=== PATIENT | male | born 1990 | race Caucasian/White ===

== ENCOUNTER 2016-11-10 10:27 | Emergency (ER) | payer OTHER ==
[2016-11-10] MEDS ORDERED: KETOROLAC 30 MG/ML VIAL (J1885) As Ordered ONE (10:56)
[2016-11-10 11:37] LABS: BASO % 0.2 % (0.0-1.0); EOS # 0.1 K/mm3 (0.0-0.50); EOS % 0.9 % (0.0-3.0); LARGE UNSTAINED CELL # 0.1 K/mm3 (0.0-0.4); LARGE UNSTAINED CELL % 0.9 % (0.0-4.0); LYMPH # 1.1 K/mm3 (1.5-6.5); LYMPH % 8.9 % (24.0-44.0); MEAN CORPUSCULAR HEMOGLOBIN 31.9 pg (27.0-33.0); MEAN CORPUSCULAR HGB CONC 34.7 g/dl (32.0-36.5); MEAN CORPUSCULAR VOLUME 91.9 fl (80.0-96.0); MONO # 0.7 K/mm3 (0.0-0.8); MONO % 6.5 % (0.0-5.0); NEUTROPHILS # 9.1 K/mm3 (1.8-7.7); NEUTROPHILS % 82.7 % (36.0-66.0); RED CELL DISTRIBUTION WIDTH 12.4 % (11.5-14.5)
[2016-11-10 11:46] LABS: ALBUMIN/GLOBULIN RATIO 0.98 (1.00-1.93); ALKALINE PHOSPHATASE 69 U/L (45-117); ALT/SGPT 68 U/L (12-78); AMYLASE 48 U/L (25-115); ANION GAP 9 MEQ/L (8-16); AST/SGOT 25 U/L (15-37); BILIRUBIN,DIRECT 0.1 MG/DL (0.0-0.2); BILIRUBIN,TOTAL 0.7 MG/DL (0.2-1.0); BLOOD UREA NITROGEN 10 MG/DL (7-18); CALCIUM LEVEL 9.3 MG/DL (8.5-10.1); CARBON DIOXIDE LEVEL 26 MEQ/L (21-32); CHLORIDE LEVEL 106 MEQ/L (98-107); CREATININE FOR GFR 1.12 MG/DL (0.70-1.30); GLOMERULAR FILTRATION RATE > 60.0 (>60); GLUCOSE, FASTING 94 MG/DL (70-105); POTASSIUM SERUM 4.2 MEQ/L (3.5-5.1); SODIUM LEVEL 141 MEQ/L (136-145); TOTAL PROTEIN 8.1 GM/DL (6.4-8.2)
[2016-11-10 11:53] LABS: PLATELET COUNT, AUTOMATED 67 k/mm3 (150-450)
--- NOTE | 2016-11-10 12:45 | EDDOCDS ---
Physician Documentation [facility] Name: Oj Jane Age: 26 yrs Sex: Male : 1990 Arrival Date: 11/10/2016 Time: 10:27 Bed I5 / M5 Private MD: ALE [place] Disposition: 11/10/16 12:29 Discharged to Home/Self Care. Impression: Diarrhea, unspecified, Generalized abdominal pain, Headache. - Condition is Stable. - Discharge Instructions: Viral Gastroenteritis. - Prescriptions for ZOFRAN ODT 4 mg - dissolve 1 tablet by ORAL route 4 times per day As needed do not chew, do not swallow whole; 10 tablet. - Medication Reconciliation, Work Release Form - 1 day form. - Follow up: ALE [place]; When: Call to arrange an appointment; Reason: Wound/Symptom Recheck, Recheck today's complaints, Worsening of conditions, Continuance of care. - Problem is an ongoing problem. - Symptoms have improved. Historical: - Allergies: no known allergies; - Home Meds: 1. none - PMHx: none; - PSHx: none; - Social history: Smoking status: Patient states was never smoker of tobacco. No barriers to communication noted, The patient speaks fluent Slovak. - Family history: Not pertinent. - : The pt / caregiver states he / she is not on anticoagulants. Home medication list is obtained from the patient. - Exposure Risk Screening:: None identified. Vital Signs: 11/10 10:28 BP 159 / 96; Pulse 100; Resp 16; Temp 100.3; Pulse Ox 97% ; Weight 108.86 kg / 240 lbs; elp Height 6 ft. 2 in. (187.96 cm); 11:58 Pain 3/10; ck1 12:31 BP 137 / 81; Pulse 77; Resp 18; Temp 97.7(O); Pulse Ox 96% on R/A; Pain 3/10; ck1 10:28 Body Mass Index 30.81 (108.86 kg, 187.96 cm) elp MDM: 10:45 NS 0.9% 1000 ml IV at bolus once ordered. cc10 10:45 ketorolac 30 mg IVP once ordered. cc10 10:45 IV Saline Lock ordered. cc10 10:45 Undress patient appropriately for examination ordered. cc10 10:46 Amylase Ordered. EDMS 10:46 Basic Metabolic Profile Ordered. EDMS 10:46 CBC with Diff Ordered. EDMS 10:46 Lipase Ordered. EDMS 10:46 Liver Profile Ordered. EDMS 10:46 Urinalysis Ordered. EDMS 10:46 Abdomen, Flat\E\Upright,PA Chest Ordered. EDMS 10:46 NOTHING BY MOUTH+DIET ordered. EDMS 11:18 Financial registration complete. mm15 12:00 CBC with Diff Reviewed. cc10 12:00 Liver Profile Reviewed. cc10 12:00 Amylase Reviewed. cc10 12:00 Basic Metabolic Profile Reviewed. cc10 12:00 Lipase Reviewed. cc10 12:00 Urinalysis Reviewed. cc10 Administered Medications: 10:59 Drug: NS 0.9% 1000 ml [sodium chloride 0.9 % injection solution] Route: IV; Rate: mlb1 bolus; Site: right antecubital; 12:30 Follow up: IV Status: Infusion discontinued ck1 11:00 Drug: ketorolac 30 mg [ketorolac 30 mg/mL (1 mL) injection solution (1 mL)] Route: IVP; mlb1 Site: right antecubital; 11:58 Follow up: Pain 3/10 Adult; Response: No Adverse Reaction; Pain is decreased ck1 Signatures: Dispatcher [employer] EDMS Cristiane HendricksonRN RN ck1 Samantha Grullon, Monae Phillips RN mm15 Stuart Ramsey PA-C PAAlanC cc10 Raudel Martinez RN mlb1 MTDD
--- NOTE | 2016-11-10 12:45 | EDDOCDS ---
Nurse's Notes [facility] Name: Oj Jane Age: 26 yrs Sex: Male : 1990 Arrival Date: 11/10/2016 Time: 10:27 Bed I5 / M5 Private MD: Celso [facility] Diagnosis: Diarrhea, unspecified;Generalized abdominal pain;Headache Presentation: 11/10 10:30 Presenting complaint: Patient states: lower abdominal pain radiating to low back sudden jjr onset at 1800 yesterday, also reports STEELE and heaviness to center of chest since 2300 last night, reports no appetite due to abd pain, last BM yesterday. Risk factors: the patient reports not having a history of previous torsion. Adult Sepsis Screening: The patient does not have new or worsening altered mentation. Patient's respiratory rate is less than 22. Systolic blood pressure is greater than 100. Patient has a qSOFA score of 0- Negative Sepsis Screen. Suicide/Homicide risk assessment- the patient denies having any suicidal and/or homicidal ideations and does not present with any other emotional, behavioral or mental health complaints. Status: The patient is an active duty social service manager. Transition of care: patient was not received from another setting of care. 10:30 Acuity: SARATH Level 3 jjr 10:30 Method Of Arrival: Walkin/Carried/Asstd jjr Triage Assessment: 10:32 General: Appears in no apparent distress. Pain: Location: left low back, right low jjr back, right lower quadrant and left lower quadrant. Pt Declines HIV testing. GI: Reports lower abdominal pain. Derm: No deficits noted. Historical: - Allergies: no known allergies; - Home Meds: 1. none - PMHx: none; - PSHx: none; - Social history: Smoking status: Patient states was never smoker of tobacco. No barriers to communication noted, The patient speaks fluent Burundian. - Family history: Not pertinent. - : The pt / caregiver states he / she is not on anticoagulants. Home medication list is obtained from the patient. - Exposure Risk Screening:: None identified. Screenin:02 Screening information is obtained from the patient. Fall risk: No risks identified. ck1 Assistance ADL's: requires no assistance with activities of daily living. Abuse/DV Screen: The patient / caregiver reports he/she is: not in a situation that causes fear, pain or injury. Nutritional screening: No deficits noted. Advance Directives: Currently, there is no health care proxy. home support is adequate. Assessment: 11:00 General: Appears in no apparent distress, comfortable, Behavior is appropriate for age, mlb1 cooperative. Pain: Location: abdomen Pain currently is 5 out of 10 on a pain scale. GI: Abdomen is non- distended Bowel sounds present X 4 quads. Abd is soft and non tender X 4 quads. Derm: No deficits noted. 11:59 General: Patient is resting quietly on stretcher. Reports pain 3/10 in abdomen. Reports ck1 "loose" BM in ED restroom. No c/o N/V. Call light in reach, SO at bedside. Will continue to monitor patient. 12:43 General: Appears in no apparent distress, comfortable, Behavior is appropriate for age, ck1 cooperative. Pain: Location: abdomen Pain currently is 3 out of 10 on a pain scale. Neurological: Level of Consciousness is awake, alert, obeys commands, Oriented to person, place, time. Respiratory: Respiratory effort is unlabored, Respiratory pattern is regular, symmetrical. GI: Denies nausea, vomiting. Derm: Skin is intact, is healthy with good turgor. Musculoskeletal: No deficits noted. Vital Signs: 10:28 BP 159 / 96; Pulse 100; Resp 16; Temp 100.3; Pulse Ox 97% ; Weight 108.86 kg; Height 6 elp ft. 2 in. (187.96 cm); 11:58 Pain 3/10; ck1 12:31 BP 137 / 81; Pulse 77; Resp 18; Temp 97.7(O); Pulse Ox 96% on R/A; Pain 3/10; ck1 10:28 Body Mass Index 30.81 (108.86 kg, 187.96 cm) [facility] Vitals: 10:28 Log In Time: November 10, 2016 at 10:26. [facility] ED Course: 10:28 Patient visited by Lisa Banda PCA. elp 10:28 ALE [place] is Private Physician. elp 10:28 Patient moved to Waiting elp 10:29 Patient visited by Lisa Banda PCA. elp 10:29 Patient moved to Pre RCE elp 10:30 Stuart Ramsey [facility] cc10 10:30 Doroteo Moran MD is Attending Physician. cc10 10:32 Triage Initiated jjr 10:33 Patient moved to Triage 2 jjr 10:39 Patient visited by Stuart Ramsey PA-C. cc10 10:39 Patient visited by Stuart Ramsey PA-C. cc10 10:53 Patient moved to I5 / M5 pml 11:01 Patient visited by Cristiane Hendrickson,DAMION. ck1 11:01 Amylase Sent. ck1 11:01 Basic Metabolic Profile Sent. ck1 11:01 CBC with Diff Sent. ck1 11:01 Lipase Sent. ck1 11:01 Liver Profile Sent. ck1 11:01 Inserted saline lock: 20 gauge in right antecubital area and blood collected. The ck1 patient tolerated the procedure well. 11:02 Patient visited by Cristiane Hendrickson RN. ck1 11:02 The patient / caregiver is instructed regarding the plan of care and ED course. ck1 11:36 Patient visited by Cristiane Hendrickson RN. ck1 11:58 Patient visited by Cristiane Hendrickson,DAMION. ck1 12:28 ALE [place] is Referral Physician. cc10 12:30 Discontinued lock intact, bleeding controlled, pressure dressing applied, No ck1 redness/swelling at site. No procedures done that require assistance. Administered Medications: 10:59 Drug: NS 0.9% 1000 ml [sodium chloride 0.9 % injection solution] Route: IV; Rate: mlb1 bolus; Site: right antecubital; 12:30 Follow up: IV Status: Infusion discontinued ck1 11:00 Drug: ketorolac 30 mg [ketorolac 30 mg/mL (1 mL) injection solution (1 mL)] Route: IVP; mlb1 Site: right antecubital; 11:58 Follow up: Pain 3/10 Adult; Response: No Adverse Reaction; Pain is decreased ck1 Order Results: Lab Order: Amylase; SPEC'M 11/10/16 10:59 Test: AMYLASE; Value: 48; Range: 25-115; Units: U/L; Status: F Lab Order: Basic Metabolic Profile; SPEC'M 11/10/16 10:59 Test: GLUCOSE, FASTING; Value: 94; Range: 70-105; Units: MG/DL; Status: F Test: BLOOD UREA NITROGEN; Value: 10; Range: 7-18; Units: MG/DL; Status: F Test: CREATININE FOR GFR; Value: 1.12; Range: 0.70-1.30; Units: MG/DL; Status: F Test: GLOMERULAR FILTRATION RATE; Value: > 60.0; Range: >60; Status: F Test: SODIUM LEVEL; Value: 141; Range: 136-145; Units: MEQ/L; Status: F Test: POTASSIUM SERUM; Value: 4.2; Range: 3.5-5.1; Units: MEQ/L; Status: F Test: CHLORIDE LEVEL; Value: 106; Range: 98-107; Units: MEQ/L; Status: F Test: CARBON DIOXIDE LEVEL; Value: 26; Range: 21-32; Units: MEQ/L; Status: F Test: ANION GAP; Value: 9; Range: 8-16; Units: MEQ/L; Status: F Test: CALCIUM LEVEL; Value: 9.3; Range: 8.5-10.1; Units: MG/DL; Status: F Test Note: ; Units are mL/min/1.73 m2 Chronic Kidney Disease Staging per NKF: Stage I & II GFR >=60 Normal to Mildly Decreased Stage III GFR 30-59 Moderately Decreased Stage IV GFR 15-29 Severely Decreased Stage V GFR <15 Very Little GFR Left ESRD GFR <15 on [employer]PERATOR Lab Order: CBC with Diff; SPEC'M 11/10/16 10:59 Test: WHITE BLOOD COUNT; Value: 11.0; Range: 4.0-10.0; Abnormal: Above high normal; Units: K/mm3; Status: F Test: RED BLOOD COUNT; Value: 5.32; Range: 4.30-6.10; Units: M/mm3; Status: F Test: HEMOGLOBIN; Value: 17.0; Range: 14.0-18.0; Units: g/dl; Status: F Test: HEMATOCRIT; Value: 48.9; Range: 42.0-52.0; Units: %; Status: F Test: MEAN CORPUSCULAR VOLUME; Value: 91.9; Range: 80.0-96.0; Units: fl; Status: F Test: MEAN CORPUSCULAR HEMOGLOBIN; Value: 31.9; Range: 27.0-33.0; Units: pg; Status: F Test: MEAN CORPUSCULAR HGB CONC; Value: 34.7; Range: 32.0-36.5; Units: g/dl; Status: F Test: RED CELL DISTRIBUTION WIDTH; Value: 12.4; Range: 11.5-14.5; Units: %; Status: F Test: PLATELET COUNT, AUTOMATED; Value: 67; Range: 150-450; Abnormal: Below low normal; Units: k/mm3; Status: F Test: NEUTROPHILS %; Value: 82.7; Range: 36.0-66.0; Abnormal: Above high normal; Units: %; Status: F Test: LYMPH %; Value: 8.9; Range: 24.0-44.0; Abnormal: Below low normal; Units: %; Status: F Test: MONO %; Value: 6.5; Range: 0.0-5.0; Abnormal: Above high normal; Units: %; Status: F Test: EOS %; Value: 0.9; Range: 0.0-3.0; Units: %; Status: F Test: BASO %; Value: 0.2; Range: 0.0-1.0; Units: %; Status: F Test: LARGE UNSTAINED CELL %; Value: 0.9; Range: 0.0-4.0; Units: %; Status: F Test: NEUTROPHILS #; Value: 9.1; Range: 1.8-7.7; Abnormal: Above high normal; Units: K/mm3; Status: F Test: LYMPH #; Value: 1.1; Range: 1.5-6.5; Abnormal: Below low normal; Units: K/mm3; Status: F Test: MONO #; Value: 0.7; Range: 0.0-0.8; Units: K/mm3; Status: F Test: EOS #; Value: 0.1; Range: 0.0-0.50; Units: K/mm3; Status: F Test: BASO #; Value: 0.0; Range: 0.0-0.2; Units: K/mm3; Status: F Test: LARGE UNSTAINED CELL #; Value: 0.1; Range: 0.0-0.4; Units: K/mm3; Status: F Lab Order: Lipase; SPEC'M 11/10/16 10:59 Test: LIPASE; Value: 138; Range: 73-393; Units: U/L; Status: F Lab Order: Liver Profile; [facility] 11/10/16 10:59 Test: AST/SGOT; Value: 25; Range: 15-37; Units: U/L; Status: F Test: ALT/SGPT; Value: 68; Range: 12-78; Units: U/L; Status: F Test: ALKALINE PHOSPHATASE; Value: 69; Range: 45-117; Units: U/L; Status: F Test: BILIRUBIN,TOTAL; Value: 0.7; Range: 0.2-1.0; Units: MG/DL; Status: F Test: BILIRUBIN,DIRECT; Value: 0.1; Range: 0.0-0.2; Units: MG/DL; Status: F Test: TOTAL PROTEIN; Value: 8.1; Range: 6.4-8.2; Units: GM/DL; Status: F Test: ALBUMIN; Value: 4.0; Range: 3.2-5.2; Units: GM/DL; Status: F Test: ALBUMIN/GLOBULIN RATIO; Value: 0.98; Range: 1.00-1.93; Abnormal: Below low normal; Status: F Lab Order: Urinalysis; [facility]' 11/10/16 10:52 Test: APPEARANCE, URINE; Value: CLEAR; Range: CLEAR; Status: F Test: COLOR, URINE; Value: YELLOW; Range: YELLOW; Status: F Test: PH,URINE; Value: 5.0; Range: 5.0-9.0; Units: UNITS; Status: F Test: SPECIFIC GRAVITY URINE AUTO; Value: 1.024; Range: 1.002-1.035; Status: F Test: PROTEIN, URINE AUTO; Value: NEGATIVE; Range: NEGATIVE; Units: mg/dL; Status: F Test: GLUCOSE, URINE (UA) AUTO; Value: NEGATIVE; Range: NEGATIVE; Units: mg/dL; Status: F Test: KETONE, URINE AUTO; Value: NEGATIVE; Range: NEGATIVE; Units: mg/dL; Status: F Test: UROBILINOGEN, URINE AUTO; Value: 0.2; Range: 0.0-2.0; Units: mg/dL; Status: F Test: BILIRUBIN, URINE AUTO; Value: NEGATIVE; Range: NEGATIVE; Status: F Test: NITRITE, URINE AUTO; Value: NEGATIVE; Range: NEGATIVE; Status: F Test: LEUKOCYTE ESTERASE, URINE AUTO; Value: NEGATIVE; Range: NEGATIVE; Status: F Test: BLOOD, URINE BLOOD; Value: NEGATIVE; Range: NEGATIVE; Status: F Test: WBC, URINE AUTO; Value: 0; Range: 0-3; Units: /HPF; Status: F Test: RBC, URINE AUTO; Value: 2; Range: 0-3; Units: /HPF; Status: F Test: BACTERIA, URINE AUTO; Value: NEGATIVE; Range: NEGATIVE; Status: F Test: SQUAMOUS EPITHELIAL CELL UR AU; Value: 0; Range: 0-6; Units: /HPF; Status: F Test: MUCUS, URINE; Value: SMALL; Range: NEGATIVE; Status: F Test: HYALINE CAST, URINE AUTO; Value: 0; Range: 0-1; Units: /LPF; Status: F Outcome: 12:29 Discharge ordered by Provider. cc10 12:30 Discharge Assessment: Patient awake, alert and oriented x 3. No cognitive and/or ck1 functional deficits noted. Patient verbalized understanding of disposition instructions. patient administered narcotics - no. The following High Risk Discharge criteria are identified: None. Discharged to home ambulatory, with significant other. Condition: stable. Discharge instructions given to patient, Instructed on discharge instructions, follow up and referral plans. medication usage, Demonstrated understanding of instructions, medications, Pt was receptive of discharge instructions/ teaching. Prescriptions given X 1, Work note provided to patient. No special radiology studies were completed. Property :Personal belongings accompany Pt. 12:44 Patient left the ED. ck1 Signatures: Raudel Martinez RN RN mlb1 Cristiane HendricksonRN RN ck1 Samantha Grullon RN [place] CastilloRN RN Lisa Salinas, [employer] elp Stuart Ramsey, PA-C PA-C cc10 MTDD
--- NOTE | 2016-11-10 14:49 | REP ---
ACUTE ABDOMINAL SERIES: 11/10/2016. Clinical history: Abdominal pain. Findings: PA chest: Lungs well inflated and clear. The heart, mediastinal and hilar contours are normal. Airway intact. No free air under the diaphragm. Bones unremarkable. Abdomen: Flat and upright views of the abdomen show nonspecific gas pattern. There is scattered gas in small bowel loops without dilatation. A couple of air-fluid levels in a nonspecific pattern are noted. No abnormal calcifications or masses. No free air. Bones intact. Impression: 1. Nonspecific gas pattern without obstruction, mass or free air. Scattered gas in nondilated small bowel loops with a few air-fluid levels. This might reflect some gastroenteritis or ileus. 2. Negative PA chest. Signed by Jerel Gonzalez MD 11/10/2016 07:28 P
--- NOTE | 2016-11-12 13:45 | EDDOCDS ---
Nurse's Notes [facility] Name: Oj Jane Age: 26 yrs Sex: Male : 1990 Arrival Date: 11/10/2016 Time: 10:27 Bed I5 / M5 Private MD: Celso [facility] Diagnosis: Diarrhea, unspecified;Generalized abdominal pain;Headache Presentation: 11/10 10:30 Presenting complaint: Patient states: lower abdominal pain radiating to low back sudden jjr onset at 1800 yesterday, also reports STEELE and heaviness to center of chest since 2300 last night, reports no appetite due to abd pain, last BM yesterday. Risk factors: the patient reports not having a history of previous torsion. Adult Sepsis Screening: The patient does not have new or worsening altered mentation. Patient's respiratory rate is less than 22. Systolic blood pressure is greater than 100. Patient has a qSOFA score of 0- Negative Sepsis Screen. Suicide/Homicide risk assessment- the patient denies having any suicidal and/or homicidal ideations and does not present with any other emotional, behavioral or mental health complaints. Status: The patient is an active duty postal service mail processor. Transition of care: patient was not received from another setting of care. 10:30 Acuity: SARATH Level 3 jjr 10:30 Method Of Arrival: Walkin/Carried/Asstd jjr Triage Assessment: 10:32 General: Appears in no apparent distress. Pain: Location: left low back, right low jjr back, right lower quadrant and left lower quadrant. Pt Declines HIV testing. GI: Reports lower abdominal pain. Derm: No deficits noted. Historical: - Allergies: no known allergies; - Home Meds: 1. none - PMHx: none; - PSHx: none; - Social history: Smoking status: Patient states was never smoker of tobacco. No barriers to communication noted, The patient speaks fluent Jordanian. - Family history: Not pertinent. - : The pt / caregiver states he / she is not on anticoagulants. Home medication list is obtained from the patient. - Exposure Risk Screening:: None identified. Screenin:02 Screening information is obtained from the patient. Fall risk: No risks identified. ck1 Assistance ADL's: requires no assistance with activities of daily living. Abuse/DV Screen: The patient / caregiver reports he/she is: not in a situation that causes fear, pain or injury. Nutritional screening: No deficits noted. Advance Directives: Currently, there is no health care proxy. home support is adequate. Assessment: 11:00 General: Appears in no apparent distress, comfortable, Behavior is appropriate for age, mlb1 cooperative. Pain: Location: abdomen Pain currently is 5 out of 10 on a pain scale. GI: Abdomen is non- distended Bowel sounds present X 4 quads. Abd is soft and non tender X 4 quads. Derm: No deficits noted. 11:59 General: Patient is resting quietly on stretcher. Reports pain 3/10 in abdomen. Reports ck1 "loose" BM in ED restroom. No c/o N/V. Call light in reach, SO at bedside. Will continue to monitor patient. 12:43 General: Appears in no apparent distress, comfortable, Behavior is appropriate for age, ck1 cooperative. Pain: Location: abdomen Pain currently is 3 out of 10 on a pain scale. Neurological: Level of Consciousness is awake, alert, obeys commands, Oriented to person, place, time. Respiratory: Respiratory effort is unlabored, Respiratory pattern is regular, symmetrical. GI: Denies nausea, vomiting. Derm: Skin is intact, is healthy with good turgor. Musculoskeletal: No deficits noted. Vital Signs: 10:28 BP 159 / 96; Pulse 100; Resp 16; Temp 100.3; Pulse Ox 97% ; Weight 108.86 kg; Height 6 elp ft. 2 in. (187.96 cm); 11:58 Pain 3/10; ck1 12:31 BP 137 / 81; Pulse 77; Resp 18; Temp 97.7(O); Pulse Ox 96% on R/A; Pain 3/10; ck1 10:28 Body Mass Index 30.81 (108.86 kg, 187.96 cm) [facility] Vitals: 10:28 Log In Time: November 10, 2016 at 10:26. [facility] ED Course: 10:28 Patient visited by Lisa Banda PCA. elp 10:28 ALE [place] is Private Physician. elp 10:28 Patient moved to Waiting elp 10:29 Patient visited by Lisa Banda PCA. elp 10:29 Patient moved to Pre RCE elp 10:30 [facility] cc10 10:30 Doroteo Moran MD is Attending Physician. cc10 10:32 Triage Initiated jjr 10:33 Patient moved to Triage 2 jjr 10:39 Patient visited by Stuart Ramsey PA-C. cc10 10:39 Patient visited by Stuart Ramsey PA-C. cc10 10:53 Patient moved to I5 / M5 pml 11:01 Patient visited by Cristiane Hendrickson,DAMION. ck1 11:01 Amylase Sent. ck1 11:01 Basic Metabolic Profile Sent. ck1 11:01 CBC with Diff Sent. ck1 11:01 Lipase Sent. ck1 11:01 Liver Profile Sent. ck1 11:01 Inserted saline lock: 20 gauge in right antecubital area and blood collected. The ck1 patient tolerated the procedure well. 11:02 Patient visited by Cristiane Hendrickson,DAMION. ck1 11:02 The patient / caregiver is instructed regarding the plan of care and ED course. ck1 11:36 Patient visited by Cristiane Hendrickson RN. ck1 11:58 Patient visited by Cristiane Hendrickson,DAMION. ck1 12:28 Celso Sonya is Referral Physician. cc10 12:30 Discontinued lock intact, bleeding controlled, pressure dressing applied, No ck1 redness/swelling at site. No procedures done that require assistance. 14:15 Patient name changed from Oj\\S\\\\S\\Lucinda\\S\\ to Oj\\S\\ \\S\\Lucinda. EDMS 14:17 [facility] Payment Agreement was scanned into [employer] and attached to record. mpb 15:07 Abdomen, Flat\\E\\Upright,PA Chest Returned. EDMS 11/11 14:06 T-Sheet-- Draft Copy was scanned into [employer] and attached to record. gb Administered Medications: 11/10 10:59 Drug: NS 0.9% 1000 ml [sodium chloride 0.9 % injection solution] Route: IV; Rate: mlb1 bolus; Site: right antecubital; 12:30 Follow up: IV Status: Infusion discontinued ck1 11:00 Drug: ketorolac 30 mg [ketorolac 30 mg/mL (1 mL) injection solution (1 mL)] Route: IVP; mlb1 Site: right antecubital; 11:58 Follow up: Pain 12/06 Adult; Response: No Adverse Reaction; Pain is decreased ck1 Order Results: Lab Order: Amylase; 11/10/16 10:59 Test: AMYLASE; Value: 48; Range: 25-115; Units: U/L; Status: F Lab Order: Basic Metabolic Profile; 11/10/16 10:59 Test: GLUCOSE, FASTING; Value: 94; Range: 70-105; Units: MG/DL; Status: F Test: BLOOD UREA NITROGEN; Value: 10; Range: 7-18; Units: MG/DL; Status: F Test: CREATININE FOR GFR; Value: 1.12; Range: 0.70-1.30; Units: MG/DL; Status: F Test: GLOMERULAR FILTRATION RATE; Value: > 60.0; Range: >60; Status: F Test: SODIUM LEVEL; Value: 141; Range: 136-145; Units: MEQ/L; Status: F Test: POTASSIUM SERUM; Value: 4.2; Range: 3.5-5.1; Units: MEQ/L; Status: F Test: CHLORIDE LEVEL; Value: 106; Range: 98-107; Units: MEQ/L; Status: F Test: CARBON DIOXIDE LEVEL; Value: 26; Range: 21-32; Units: MEQ/L; Status: F Test: ANION GAP; Value: 9; Range: 8-16; Units: MEQ/L; Status: F Test: CALCIUM LEVEL; Value: 9.3; Range: 8.5-10.1; Units: MG/DL; Status: F Test Note: ; Units are mL/min/1.73 m2 Chronic Kidney Disease Staging per NKF: Stage I & II GFR >=60 Normal to Mildly Decreased Stage III GFR 30-59 Moderately Decreased Stage IV GFR 15-29 Severely Decreased Stage V GFR <15 Very Little GFR Left ESRD GFR <15 on SQL PROGRAMMER Lab Order: CBC with Diff; 11/10/16 10:59 Test: WHITE BLOOD COUNT; Value: 11.0; Range: 4.0-10.0; Abnormal: Above high normal; Units: K/mm3; Status: F Test: RED BLOOD COUNT; Value: 5.32; Range: 4.30-6.10; Units: M/mm3; Status: F Test: HEMOGLOBIN; Value: 17.0; Range: 14.0-18.0; Units: g/dl; Status: F Test: HEMATOCRIT; Value: 48.9; Range: 42.0-52.0; Units: %; Status: F Test: MEAN CORPUSCULAR VOLUME; Value: 91.9; Range: 80.0-96.0; Units: fl; Status: F Test: MEAN CORPUSCULAR HEMOGLOBIN; Value: 31.9; Range: 27.0-33.0; Units: pg; Status: F Test: MEAN CORPUSCULAR HGB CONC; Value: 34.7; Range: 32.0-36.5; Units: g/dl; Status: F Test: RED CELL DISTRIBUTION WIDTH; Value: 12.4; Range: 11.5-14.5; Units: %; Status: F Test: PLATELET COUNT, AUTOMATED; Value: 67; Range: 150-450; Abnormal: Below low normal; Units: k/mm3; Status: F Test: NEUTROPHILS %; Value: 82.7; Range: 36.0-66.0; Abnormal: Above high normal; Units: %; Status: F Test: LYMPH %; Value: 8.9; Range: 24.0-44.0; Abnormal: Below low normal; Units: %; Status: F Test: MONO %; Value: 6.5; Range: 0.0-5.0; Abnormal: Above high normal; Units: %; Status: F Test: EOS %; Value: 0.9; Range: 0.0-3.0; Units: %; Status: F Test: BASO %; Value: 0.2; Range: 0.0-1.0; Units: %; Status: F Test: LARGE UNSTAINED CELL %; Value: 0.9; Range: 0.0-4.0; Units: %; Status: F Test: NEUTROPHILS #; Value: 9.1; Range: 1.8-7.7; Abnormal: Above high normal; Units: K/mm3; Status: F Test: LYMPH #; Value: 1.1; Range: 1.5-6.5; Abnormal: Below low normal; Units: K/mm3; Status: F Test: MONO #; Value: 0.7; Range: 0.0-0.8; Units: K/mm3; Status: F Test: EOS #; Value: 0.1; Range: 0.0-0.50; Units: K/mm3; Status: F Test: BASO #; Value: 0.0; Range: 0.0-0.2; Units: K/mm3; Status: F Test: LARGE UNSTAINED CELL #; Value: 0.1; Range: 0.0-0.4; Units: K/mm3; Status: F Lab Order: Lipase; [facility]' 11/10/16 10:59 Test: LIPASE; Value: 138; Range: 73-393; Units: U/L; Status: F Lab Order: Liver Profile; [facility]' 11/10/16 10:59 Test: AST/SGOT; Value: 25; Range: 15-37; Units: U/L; Status: F Test: ALT/SGPT; Value: 68; Range: 12-78; Units: U/L; Status: F Test: ALKALINE PHOSPHATASE; Value: 69; Range: 45-117; Units: U/L; Status: F Test: BILIRUBIN,TOTAL; Value: 0.7; Range: 0.2-1.0; Units: MG/DL; Status: F Test: BILIRUBIN,DIRECT; Value: 0.1; Range: 0.0-0.2; Units: MG/DL; Status: F Test: TOTAL PROTEIN; Value: 8.1; Range: 6.4-8.2; Units: GM/DL; Status: F Test: ALBUMIN; Value: 4.0; Range: 3.2-5.2; Units: GM/DL; Status: F Test: ALBUMIN/GLOBULIN RATIO; Value: 0.98; Range: 1.00-1.93; Abnormal: Below low normal; Status: F Lab Order: Urinalysis; [facility]' 11/10/16 10:52 Test: APPEARANCE, URINE; Value: CLEAR; Range: CLEAR; Status: F Test: COLOR, URINE; Value: YELLOW; Range: YELLOW; Status: F Test: PH,URINE; Value: 5.0; Range: 5.0-9.0; Units: UNITS; Status: F Test: SPECIFIC GRAVITY URINE AUTO; Value: 1.024; Range: 1.002-1.035; Status: F Test: PROTEIN, URINE AUTO; Value: NEGATIVE; Range: NEGATIVE; Units: mg/dL; Status: F Test: GLUCOSE, URINE (UA) AUTO; Value: NEGATIVE; Range: NEGATIVE; Units: mg/dL; Status: F Test: KETONE, URINE AUTO; Value: NEGATIVE; Range: NEGATIVE; Units: mg/dL; Status: F Test: UROBILINOGEN, URINE AUTO; Value: 0.2; Range: 0.0-2.0; Units: mg/dL; Status: F Test: BILIRUBIN, URINE AUTO; Value: NEGATIVE; Range: NEGATIVE; Status: F Test: NITRITE, URINE AUTO; Value: NEGATIVE; Range: NEGATIVE; Status: F Test: LEUKOCYTE ESTERASE, URINE AUTO; Value: NEGATIVE; Range: NEGATIVE; Status: F Test: BLOOD, URINE BLOOD; Value: NEGATIVE; Range: NEGATIVE; Status: F Test: WBC, URINE AUTO; Value: 0; Range: 0-3; Units: /HPF; Status: F Test: RBC, URINE AUTO; Value: 2; Range: 0-3; Units: /HPF; Status: F Test: BACTERIA, URINE AUTO; Value: NEGATIVE; Range: NEGATIVE; Status: F Test: SQUAMOUS EPITHELIAL CELL UR AU; Value: 0; Range: 0-6; Units: /HPF; Status: F Test: MUCUS, URINE; Value: SMALL; Range: NEGATIVE; Status: F Test: HYALINE CAST, URINE AUTO; Value: 0; Range: 0-1; Units: /LPF; Status: F Radiology Order: Abdomen, Flat\\E\\Upright,PA Chest Test: Abdomen, Flat\\E\\Upright,PA Chest REASON FOR EXAMINATION: Abdomen Pain; ACUTE ABDOMINAL SERIES: 11/10/2016.; ; Clinical history: Abdominal pain.; ; Findings: PA chest: Lungs well inflated and clear. The heart, mediastinal and; hilar contours are normal. Airway intact. No free air under the diaphragm.; Bones unremarkable.; ; Abdomen: Flat and upright views of the abdomen show nonspecific gas pattern.; There is scattered gas in small bowel loops without dilatation. A couple of; air-fluid levels in a nonspecific pattern are noted. No abnormal calcifications; or masses. No free air. Bones intact.; ; Impression:; ; 1. Nonspecific gas pattern without obstruction, mass or free air. Scattered gas; in nondilated small bowel loops with a few air-fluid levels. This might reflect; some gastroenteritis or ileus.; ; 2. Negative PA chest.; ; ; Signed by; Jerel Gonzalez MD 11/10/2016 07:28 P; Outcome: 12:29 Discharge ordered by Provider. cc10 12:30 Discharge Assessment: Patient awake, alert and oriented x 3. No cognitive and/or ck1 functional deficits noted. Patient verbalized understanding of disposition instructions. patient administered narcotics - no. The following High Risk Discharge criteria are identified: None. Discharged to home ambulatory, with significant other. Condition: stable. Discharge instructions given to patient, Instructed on discharge instructions, follow up and referral plans. medication usage, Demonstrated understanding of instructions, medications, Pt was receptive of discharge instructions/ teaching. Prescriptions given X 1, Work note provided to patient. No special radiology studies were completed. Property :Personal belongings accompany Pt. 12:44 Patient left the ED. ck1 Signatures: Dispatcher [employer] EDSC Elizabeth Campbell, Reg Reg gb Raudel Martinez RN RN mlb1 Cristiane Hendrickson RN RN ck1 Samantha Grullon RN RN [place] Burnett,RN RN Lisa Salinas, SOYFREEZE OPERATOR SOYFREEZE OPERATOR kaminip Stuart Ramsey, PA-C PA-C cc10 Raudel Leary, Reg Reg mpb Chart Complete MTDD
--- NOTE | 2016-11-12 13:45 | EDDOCDS ---
Physician Documentation [facility] Name: Oj Jane Age: 26 yrs Sex: Male : 1990 Arrival Date: 11/10/2016 Time: 10:27 Bed I5 / M5 Private MD: ALE [place] Disposition: 11/10/16 12:29 Discharged to Home/Self Care. Impression: Diarrhea, unspecified, Generalized abdominal pain, Headache. - Condition is Stable. - Discharge Instructions: Viral Gastroenteritis. - Prescriptions for ZOFRAN ODT 4 mg - dissolve 1 tablet by ORAL route 4 times per day As needed do not chew, do not swallow whole; 10 tablet. - Medication Reconciliation, Work Release Form - 1 day form. - Follow up: ALE [place]; When: Call to arrange an appointment; Reason: Wound/Symptom Recheck, Recheck today's complaints, Worsening of conditions, Continuance of care. - Problem is an ongoing problem. - Symptoms have improved. Historical: - Allergies: no known allergies; - Home Meds: 1. none - PMHx: none; - PSHx: none; - Social history: Smoking status: Patient states was never smoker of tobacco. No barriers to communication noted, The patient speaks fluent Maldivian. - Family history: Not pertinent. - : The pt / caregiver states he / she is not on anticoagulants. Home medication list is obtained from the patient. - Exposure Risk Screening:: None identified. Vital Signs: 11/10 10:28 BP 159 / 96; Pulse 100; Resp 16; Temp 100.3; Pulse Ox 97% ; Weight 108.86 kg / 240 lbs; elp Height 6 ft. 2 in. (187.96 cm); 11:58 Pain 3/10; ck1 12:31 BP 137 / 81; Pulse 77; Resp 18; Temp 97.7(O); Pulse Ox 96% on R/A; Pain 3/10; ck1 10:28 Body Mass Index 30.81 (108.86 kg, 187.96 cm) elp MDM: 10:45 NS 0.9% 1000 ml IV at bolus once ordered. cc10 10:45 ketorolac 30 mg IVP once ordered. cc10 10:45 IV Saline Lock ordered. cc10 10:45 Undress patient appropriately for examination ordered. cc10 10:46 Amylase Ordered. EDMS 10:46 Basic Metabolic Profile Ordered. EDMS 10:46 CBC with Diff Ordered. EDMS 10:46 Lipase Ordered. EDMS 10:46 Liver Profile Ordered. EDMS 10:46 Urinalysis Ordered. EDMS 10:46 Abdomen, Flat\E\Upright,PA Chest Ordered. EDMS 10:46 NOTHING BY MOUTH+DIET ordered. EDMS 11:18 Financial registration complete. mm15 12:00 CBC with Diff Reviewed. cc10 12:00 Liver Profile Reviewed. cc10 12:00 Amylase Reviewed. cc10 12:00 Basic Metabolic Profile Reviewed. cc10 12:00 Lipase Reviewed. cc10 12:00 Urinalysis Reviewed. cc10 14:17 [facility] Payment Agreement was scanned into [employer] and attached to record. [facility] 11/11 14:06 T-Sheet-- Draft Copy was scanned into [employer] and attached to record. gb Administered Medications: 11/10 10:59 Drug: NS 0.9% 1000 ml [sodium chloride 0.9 % injection solution] Route: IV; Rate: mlb1 bolus; Site: right antecubital; 12:30 Follow up: IV Status: Infusion discontinued ck1 11:00 Drug: ketorolac 30 mg [ketorolac 30 mg/mL (1 mL) injection solution (1 mL)] Route: IVP; mlb1 Site: right antecubital; 11:58 Follow up: Pain 3/10 Adult; Response: No Adverse Reaction; Pain is decreased ck1 Signatures: Dispatcher [employer] EDMS Elizabeth Campbell, Reg Reg gb Cristiane Hendrickson RN RN ck1 Samantha Grullon RN RN jjr McGrath, Marlynn mm15 Stuart Ramsey PA-C PA-C cc10 Raudel Leary, Reg Reg mpb Raudel Martinez RN mlb1 The chart was reviewed and I authenticate all verbal orders and agree with the evaluation and treatment provided.Attachments: 14:17 [facility] Payment Agreement [facility] 11/11 14:06 T-Sheet-- Draft Copy gb Chart Complete MTDD
--- NOTE | 2016-11-12 13:45 | EDDOCDS ---
Physician Documentation [facility] Name: Oj Jane Age: 26 yrs Sex: Male : 1990 Arrival Date: 11/10/2016 Time: 10:27 Bed I5 / M5 Private MD: ALE [place] Disposition: 11/10/16 12:29 Discharged to Home/Self Care. Impression: Diarrhea, unspecified, Generalized abdominal pain, Headache. - Condition is Stable. - Discharge Instructions: Viral Gastroenteritis. - Prescriptions for ZOFRAN ODT 4 mg - dissolve 1 tablet by ORAL route 4 times per day As needed do not chew, do not swallow whole; 10 tablet. - Medication Reconciliation, Work Release Form - 1 day form. - Follow up: ALE [place]; When: Call to arrange an appointment; Reason: Wound/Symptom Recheck, Recheck today's complaints, Worsening of conditions, Continuance of care. - Problem is an ongoing problem. - Symptoms have improved. Historical: - Allergies: no known allergies; - Home Meds: 1. none - PMHx: none; - PSHx: none; - Social history: Smoking status: Patient states was never smoker of tobacco. No barriers to communication noted, The patient speaks fluent Spanish. - Family history: Not pertinent. - : The pt / caregiver states he / she is not on anticoagulants. Home medication list is obtained from the patient. - Exposure Risk Screening:: None identified. Vital Signs: 11/10 10:28 BP 159 / 96; Pulse 100; Resp 16; Temp 100.3; Pulse Ox 97% ; Weight 108.86 kg / 240 lbs; elp Height 6 ft. 2 in. (187.96 cm); 11:58 Pain 3/10; ck1 12:31 BP 137 / 81; Pulse 77; Resp 18; Temp 97.7(O); Pulse Ox 96% on R/A; Pain 3/10; ck1 10:28 Body Mass Index 30.81 (108.86 kg, 187.96 cm) elp MDM: 10:45 NS 0.9% 1000 ml IV at bolus once ordered. cc10 10:45 ketorolac 30 mg IVP once ordered. cc10 10:45 IV Saline Lock ordered. cc10 10:45 Undress patient appropriately for examination ordered. cc10 10:46 Amylase Ordered. EDMS 10:46 Basic Metabolic Profile Ordered. EDMS 10:46 CBC with Diff Ordered. EDMS 10:46 Lipase Ordered. EDMS 10:46 Liver Profile Ordered. EDMS 10:46 Urinalysis Ordered. EDMS 10:46 Abdomen, Flat\E\Upright,PA Chest Ordered. EDMS 10:46 NOTHING BY MOUTH+DIET ordered. EDMS 11:18 Financial registration complete. mm15 12:00 CBC with Diff Reviewed. cc10 12:00 Liver Profile Reviewed. cc10 12:00 Amylase Reviewed. cc10 12:00 Basic Metabolic Profile Reviewed. cc10 12:00 Lipase Reviewed. cc10 12:00 Urinalysis Reviewed. cc10 14:17 [facility] Payment Agreement was scanned into [employer] and attached to record. [facility] 11/11 14:06 T-Sheet-- Draft Copy was scanned into [employer] and attached to record. gb Administered Medications: 11/10 10:59 Drug: NS 0.9% 1000 ml [sodium chloride 0.9 % injection solution] Route: IV; Rate: mlb1 bolus; Site: right antecubital; 12:30 Follow up: IV Status: Infusion discontinued ck1 11:00 Drug: ketorolac 30 mg [ketorolac 30 mg/mL (1 mL) injection solution (1 mL)] Route: IVP; mlb1 Site: right antecubital; 11:58 Follow up: Pain 3/10 Adult; Response: No Adverse Reaction; Pain is decreased ck1 Signatures: Dispatcher [employer] EDMS Elizabeth Campbell, Reg Reg gb Cristiane Hendrickson RN RN ck1 Samantha Grullon RN RN jjr McGrath, Marlynn mm15 Stuart Ramsey PA-C PA-C cc10 Raudel Leary, Reg Reg mpb Raudel Maritnez RN mlb1 The chart was reviewed and I authenticate all verbal orders and agree with the evaluation and treatment provided.Attachments: 14:17 [facility] Payment Agreement [facility] 11/11 14:06 T-Sheet-- Draft Copy gb Chart Complete MTDD
== END 2016-11-10 12:44 | disposition home or self-care (01) ==
LOC: M ED 10:27
DX: B08.4 Enteroviral vesicular stomatitis with exanthem (principal); R10.84 Generalized abdominal pain; R19.7 Diarrhea, unspecified
CPT/HCPCS: 36415; 74022; 80048; 80076; 81001; 82150; 83690; 85025; 96361; 96374; 99284; J1885